=== PATIENT | female | born 1950 | race Caucasian/White ===

== ENCOUNTER 2024-01-04 22:04 | Emergency (ER) | payer MEDICARE, OTHER ==
[~2024-01-04] VITALS: Ht 165.1 cm; Wt 68.3 kg
[2024-01-04] MEDS ORDERED: PREDNISOLONE ACE5 ML (22:21)
[2024-01-04] MEDS ORDERED: AMLODIPINE BESY10 MG (22:21)
[2024-01-04] MEDS ORDERED: METOPROLOL SUCC25 MG (22:21)
[2024-01-04] MEDS ORDERED: LISINOPRIL10 MG (22:21)
[2024-01-04] MEDS ORDERED: OFLOXACIN5 M1 (22:21)
[2024-01-04] MEDS ORDERED: ASPIRIN 81 MG CHEW PO ONE (22:30)
[2024-01-04 22:37] LABS: BASOPHILS 0.9 % (0-2); EOSINOPHILS 2.5 % (0-6); HEMATOCRIT 41.3 % (35.0-50.0); MCH 32.7 (27-36); MCHC 33.9 g/dl (30-36); MCV 96.5 fl (81-99); MONOCYTES 6.6 % (0-12); PLATELET COUNT 230 K/uL (140-440); RBC 4.28 M/ul (4.3-5.7); RDW 14.2 (10.5-15.0)
[2024-01-04 22:56] LABS: ALBUMIN 3.7 g/dL (3.4-5.0); ALBUMIN/GLOBULIN RATIO 0.93 (1.1-2.4); ANION GAP 17.2 (7-21); BILIRUBIN, TOTAL 0.5 ng/dL (0.2-1.0); BUN/CREATININE RATIO 18.13 (6.0-28.6); CALCIUM 10.4 mg/dL (8.5-10.1); CREATININE, SERUM 1.93 mg/dL (0.55-1.02); POTASSIUM 4.2 mmol/L (3.5-5.1); PROTEIN, TOTAL 7.7 g/dL (6.4-8.2)
[2024-01-04 23:10] LABS: BILIRUBIN, URINE NEGATIVE (negative); BLOOD/HGB, URINE NEGATIVE (Negative); KETONE, URINE NEGATIVE (Negative); LEUK ESTERASE, URINE SMALL (negative); NITRITE, URINE NEGATIVE (negative)
[2024-01-04 23:16] LABS: BACTERIA, URINE RARE /hpf (negative); CASTS, URINE NONE SEEN \\lpf; COLLECTION TYPE, URINE CLEAN CATCH; CRYSTALS, URINE NONE SEEN (0-1+); EPITHELIAL CELLS, URINE SQUAMOUS 1+ /lpf (0-1+); RED BLOOD CELLS, URINE 0-1 /hpf (0-5); REFLEX CULTURE, URINE Yes (No); WHITE BLOOD CELLS, URINE 21-40 /HPF (0-5)
[2024-01-04] MEDS ORDERED: SODIUM CHLORIDE 0.9% 500 ML IV SCH (23:30)
[2024-01-04] MEDS ORDERED: NITROFURANTOIN MONOHYD MACROCR 100 MG CAP PO ONE (23:30)
[2024-01-05] MEDS ORDERED: MACROBID 100 M100 MG PO (05:26)
[2024-01-05] MEDS ORDERED: PAXIL10 MG PO (08:56)
[2024-01-05 09:15] VITALS: BP 127/69
--- NOTE | 2024-01-05 21:26 | EKG ---
[facility] [address] [place], [place] [address] Signed Normal sinus rhythm Possible Left atrial enlargement Left axis deviation Left ventricular hypertrophy with repolarization abnormality ( R in aVL , Jaya product ) Abnormal ECG No previous ECGs available Confirmed by Bran Abbott MD ([id number]) on 01/05/2024 9:25:44 PM Electronically Signed By: BRAN ABBOTT MD 01/05/242125 PATIENT NAME: EARLINE CABRERA Electrocardiogram DATE OF : 50 PHYSICIAN: BRAN ABBOTT MD REPORT #: [id number] REPORT IS CONFIDENTIAL AND NOT TO BE RELEASED WITHOUT AUTHORIZATION
--- NOTE | 2024-01-07 08:36 | STRESS ---
[facility] [address] [place] [address] Signed DATE OF STUDY: PROCEDURE: EKG stress test SUMMARY REPORT: The patient exercised according to Chucho protocol, achieved a work level of 4.6 METS. Resting heart rate was 64 beats per minute. Resting blood pressure was 141/80 mmHg. Resting EKG showed normal sinus rhythm, otherwise within normal limits. The patient exercised only for 1 minute and 37 seconds. Stress test was stopped due to fatigue and shortness breath, unable to continue. Heart rate increased to 137 beats per minute representing 93% of maximal age predicted heart rate. Blood pressure increased to 176/94 mmHg. There was no ischemic EKG changes at this level of exercise, which is very impaired. CONCLUSION: 1. Maximal asymptomatic exercise EKG stress test with poor functional status. The patient then finished stage I. 2. At this level of exercise, there were no ischemic EKG changes. 3. Intermediate risk given poor functional status. Mao Sousa MD MA/TYRON /[id number] PATIENT NAME: EARLINE CABRERA Stress test DATE OF : 50 PHYSICIAN: MAO SOUSA MD REPORT #: [id number] REPORT IS CONFIDENTIAL AND NOT TO BE RELEASED WITHOUT AUTHORIZATION
== END 2024-01-05 09:15 | disposition home or self-care (01) ==
LOC: ED 22:04
PROVIDERS: Internal Medicine
DX: R07.9 Chest pain, unspecified (principal); N39.0 Urinary tract infection, site not specified; R06.02 Shortness of breath; Z79.52 Long term (current) use of systemic steroids; Z79.899 Other long term (current) drug therapy
CPT/HCPCS: 36415; 71045; 80053; 81001; 83735; 83880; 84484; 85025; 85379; 87077; 87088; 87186; 93005; 93010; 96360; 99285-25; A9270; J7040

== ENCOUNTER 2024-05-12 08:06 | Emergency (ER) | payer MEDICARE, OTHER ==
[~2024-05-12] VITALS: Ht 165.1 cm; Wt 68.0 kg
[~2024-05-12 08:06] MED LIST: AMLODIPINE BESY10 MG; LISINOPRIL10 MG; MACROBID 100 M100 MG PO; METOPROLOL SUCC25 MG; OFLOXACIN5 M1; PAXIL10 MG PO; PREDNISOLONE ACE5 ML
[2024-05-12] MEDS ORDERED: ERYTHROMYCIN 3.5 GM HOME.PACK OP ONE (08:45)
[2024-05-12] MEDS ORDERED: TETRACAINE HCL 0.5% 4 ML BTL OD ONE (08:45)
[2024-05-12] MEDS ORDERED: FLUORESCEIN SOD 1 EA STRP OD ONE (08:45)
[2024-05-12 09:01] VITALS: BP 135/90
== END 2024-05-12 09:05 | disposition home or self-care (01) ==
LOC: ED 08:06
DX: S05.01XA Injury of conjunctiva and corneal abrasion without foreign body, right eye, initial encounter (principal); N18.4 Chronic kidney disease, stage 4 (severe); Z79.52 Long term (current) use of systemic steroids; Z79.899 Other long term (current) drug therapy; W26.8XXA Contact with other sharp object(s), not elsewhere classified, initial encounter
CPT/HCPCS: 99283

== ENCOUNTER 2025-02-26 08:52 | Emergency (ER) | payer MEDICARE, OTHER ==
[~2025-02-26] VITALS: Ht 165.1 cm; Wt 66.8 kg
[2025-02-26] MEDS ORDERED: ONDANSETRON ODT4 MG PO (09:19)
[2025-02-26] MEDS ORDERED: METHOCARBAMOL500 MG PO (09:19)
[2025-02-26] MEDS ORDERED: PERCOCET 5-3251 EACH PO (09:20)
[2025-02-26] MEDS ORDERED: FLUOXETINE HCL20 MG PO (09:22)
[2025-02-26 09:59] LABS: BASOPHILS 0.4 % (0.1-1.2); EOSINOPHILS 4.2 % (0.7-5.8); LYMPHOCYTES 17.0 % (19.3-51.7); MCH 31.6 PG (25.6-32.2); MCHC 32.1 g/dL (32.2-35.5); MCV 98.4 fL (79.4-94.8); MONOCYTES 9.7 % (4.7-12.5); NEUTROPHILS 68.0 % (34.0-71.1); RBC 3.77 M/uL (3.93-5.22)
[2025-02-26 10:23] LABS: ALT (SGPT) 27.0 U/L (14-59); AST (SGOT) 24.0 U/L (15-37); GLOMERULAR FILTRATION RATE,EST 51.0 mL/min (>60); PROTEIN, TOTAL 6.3 g/dL (6.4-8.2); UREA NITROGEN 22.0 mg/dL (7-18)
[2025-02-26 10:46] LABS: BLOOD/HGB, URINE NEGATIVE (Negative); KETONE, URINE NEGATIVE (Negative); LEUK ESTERASE, URINE NEGATIVE (negative); NITRITE, URINE NEGATIVE (negative)
[2025-02-26 10:52] LABS: BACTERIA, URINE NONE SEEN /hpf (negative); CASTS, URINE NONE SEEN \\lpf; CRYSTALS, URINE NONE SEEN (0-1+); EPITHELIAL CELLS, URINE SQUAMOUS 1+ /lpf (0-1+); REFLEX CULTURE, URINE No (No)
[2025-02-26] MEDS ORDERED: OXYCODONE HCL 5 MG TAB PO ONE (11:00)
--- NOTE | 2025-02-26 13:47 | EKG ---
[facility] [address] [place] [address] Signed Normal sinus rhythm Minimal voltage criteria for LVH, may be normal variant ( R in aVL ) Borderline ECG When compared with ECG of 04-JAN-2024 22:12, ST no longer depressed in Lateral leads T wave inversion now evident in Inferior leads Confirmed by Leticia Prado DO ([id number]) on 02/26/2025 1:47:17 PM Electronically Signed By: LETICIA PRADO DO 02/26/25 1347 PATIENT NAME: EARLINE CABRERA Electrocardiogram DATE OF : 50 PHYSICIAN: LETICIA PRADO DO REPORT #: [id number] REPORT IS CONFIDENTIAL AND NOT TO BE RELEASED WITHOUT AUTHORIZATION
[2025-02-26] MEDS ORDERED: SOD PHOSPHATE/SOD BIPHOSPHATE 132 ML BTL PR ONE (14:30)
[2025-02-26 15:15] VITALS: BP 162/112
== END 2025-02-26 15:30 | disposition home or self-care (01) ==
LOC: ED 08:52
PROVIDERS: Emergency Medicine
DX: R06.02 Shortness of breath (principal); N18.4 Chronic kidney disease, stage 4 (severe); Z79.899 Other long term (current) drug therapy
CPT/HCPCS: 36415; 51702; 71045; 80053; 81001; 83880; 84484; 85025; 93005; 93010; 99285-25; A9270

== ENCOUNTER 2025-03-10 18:00 | Emergency (ER) | payer OTHER, MEDICARE ==
[~2025-03-10] VITALS: Ht 165.1 cm; Wt 70.1 kg
[~2025-03-10 18:00] MED LIST changes: +FLUOXETINE HCL20 MG PO; +METHOCARBAMOL500 MG PO; +ONDANSETRON ODT4 MG PO; +PERCOCET 5-3251 EACH PO
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
[2025-03-10 19:58] VITALS: BP 140/74
== END 2025-03-10 19:58 | disposition home or self-care (01) ==
LOC: ED 18:00
DX: S09.90XA Unspecified injury of head, initial encounter (principal); S80.212A Abrasion, left knee, initial encounter; N18.4 Chronic kidney disease, stage 4 (severe)
CPT/HCPCS: 70450; 99284-25